=== PATIENT | female | born 1950 | race Caucasian/White ===

== ENCOUNTER 2021-12-21 06:33 | Day surgery (SDC) | payer OTHER ==
[~2021-12-21] VITALS: Ht 162.6 cm; Wt 81.6 kg
[2021-12-21] MEDS ORDERED: ARTICAINE HCL/EPINEPHRINE 4%/1:200,000 BIT 1.7 ML CARTRIDGE IJ ONE (12:00)
[2021-12-21] MEDS ORDERED: NS 100 ML BAG ONE (12:00)
[2021-12-21] MEDS ORDERED: NS IRRIG SOLN 1000 ML IR ONE (12:00)
[2021-12-21] MEDS ORDERED: BENZOCAINE 20% GEL 32 GM BOTTLE MM ONE (12:00)
[2021-12-21 13:35] VITALS: BP_SYST 133
== END 2021-12-21 13:50 | disposition home or self-care (01) ==
LOC: SDS 06:33 → SMU 07:06 → SDS 13:50
PROVIDERS: ATTEND Dentist General Practice
DX: M27.2 Inflammatory conditions of jaws (principal); M26.603 Bilateral temporomandibular joint disorder, unspecified; K05.223 Aggressive periodontitis, generalized, severe; F50.81 Binge eating disorder; I11.0 Hypertensive heart disease with heart failure; I50.20 Unspecified systolic (congestive) heart failure; E03.9 Hypothyroidism, unspecified; K21.9 Gastro-esophageal reflux disease without esophagitis; K05.6 Periodontal disease, unspecified; I25.10 Atherosclerotic heart disease of native coronary artery without angina pectoris; I25.2 Old myocardial infarction; G47.00 Insomnia, unspecified; Z90.710 Acquired absence of both cervix and uterus; Z90.89 Acquired absence of other organs; M79.7 Fibromyalgia; F41.9 Anxiety disorder, unspecified; Z88.0 Allergy status to penicillin; Z88.1 Allergy status to other antibiotic agents; Z79.899 Other long term (current) drug therapy; Z20.822 Contact with and (suspected) exposure to COVID-19
CPT/HCPCS: 21025; 21248; 36415; 70140; 87426; C1713